=== PATIENT | female | born 1960 | race Caucasian/White ===

== ENCOUNTER → 2018-01-12 | Outpatient (CLI) | payer OTHER ==
[2016-08-14 14:05] VITALS: BMI 33.9
[~2018-01-12] MED LIST: ACYC-50 PO; DIA5 PO; DOCU-202 PO; HCTZ25 PO; HYDR-389 PO; LISI-374 PO; LOR5/325 PO; MOM PO; POLY17PO25 PO
--- NOTE | 2018-01-12 11:57 | RADIOLOGY IMAGING REPORT ---
FACILITY: [facility] PATIENT NAME: Elinor Manuel : 1960 MR: [id number] V: [id number] EXAM DATE: ORDERING PHYSICIAN: BEAN MANUEL TECHNOLOGIST: Location: [facility] Patient: Elinor Manuel : 1960 Visit/Account:[id number] Date of Sevice: 01/12/2018 FOOT 2 VIEW RIGHT Indication: Pain in the third and fourth metatarsal bone for one month Comparison: None Available Findings: 3 views of the right foot were obtained. Osseous alignment anatomic. Mild degenerative change first MTP joint. The third and fourth metatars al bones appear within normal limits without fracture or destructive osseous process. No periosteal reaction. Mild plantar calcaneal spurring is noted. IMPRESSION: 1.No acute osseous abnormality of the right foot Report Dictated By: Dante Dorado MD at 01/12/2018 11:52 AM Report E-Signed By: Dante Dorado MD at 01/12/2018 11:53 AM WSN:[email or web address]
== END ==
LOC: RAD 10:35
PROVIDERS: ATTEND Family Medicine
DX: M79.671 Pain in right foot (principal)

== ENCOUNTER → 2018-01-29 | Outpatient (CLI) | payer OTHER ==
[2016-08-14 14:05] VITALS: BMI 33.9
--- NOTE | 2018-01-29 11:36 | RADIOLOGY IMAGING REPORT ---
FACILITY: [facility] - [place] PATIENT NAME: Elinor Manuel : 1960 MR: [id number] V: [id number] EXAM DATE: ORDERING PHYSICIAN: SHASTA ARIAS TECHNOLOGIST: Location: [facility] [place] Patient: Elinor Manuel : 1960 Visit/Account:[id number] Date of Sevice: 01/29/2018 Exam type: FOOT 2 VIEW LEFT History: Pain in great toe no known injury Comparison: January 12, 2018. Right foot Findings: Two views of the left foot were submitted. There is a mild hallux valgus deformity involving the left first MTP joint. There is no evidence of acute fracture or dislocation. Incidentally noted is a small left calcaneal spur IMPRESSION: 1. Small left calcaneal spur Mild hallux valgus deformity involving the left first MTP joint Report Dictated By: Karie Mejia MD at 01/29/2018 11:30 AM Report E-Signed By: Karie Mejia MD at 01/29/2018 11:33 AM WSN:[email or web address]
== END ==
LOC: RAD 10:07
PROVIDERS: ATTEND Family Medicine
DX: M77.31 Calcaneal spur, right foot (principal)

== ENCOUNTER → 2018-09-26 | Outpatient (CLI) | payer OTHER ==
[2016-08-14 14:05] VITALS: BMI 33.9
--- NOTE | 2018-09-26 15:41 | RADIOLOGY IMAGING REPORT ---
FACILITY: [facility] - [place] PATIENT NAME: Elinor Manuel : 1960 MR: [id number] V: [id number] EXAM DATE: ORDERING PHYSICIAN: SHASTA ARIAS TECHNOLOGIST: Location: [facility] Patient: Elinor Manuel : 1960 Visit/Account:[id number] Date of Sevice: 09/26/2018 Exam type: ANKLE 3 VIEW MIN LEFT History: Twisted left ankle. Pain in left foot and ankle on lateral side Comparison: Left foot series performed today. Findings: Three views of the left ankle were submitted there is a small left calcaneal spur. There is no evide nce of acute fracture or dislocation involving the left ankle. The ankle mortise appears intact Ther e is moderate soft tissue swelling present IMPRESSION: 1. Moderate soft tissue spine about the left ankle although no gross evidence of acute fracture or d islocation Report Dictated By: Karie Mejia MD at 09/26/2018 3:35 PM Report E-Signed By: Karie Mejia MD at 09/26/2018 3:36 PM WSN:[email or web address]
--- NOTE | 2018-09-26 15:44 | RADIOLOGY IMAGING REPORT ---
FACILITY: [facility] - [place] PATIENT NAME: Elinor Manuel : 1960 MR: [id number] V: [id number] EXAM DATE: ORDERING PHYSICIAN: SHASTA ARIAS TECHNOLOGIST: [place] [facility] [place] Elinor [place] : 1960 Visit/Account:[id number] Date of Sevice: 09/26/2018 Exam type: FOOT 2 VIEW LEFT History: There is a left ankle today with pain lateral side of left foot Comparison: Left ankle series performed today. Findings: Two views of the left foot were submitted. There is a small left calcaneal spur. There is no eviden ce of acute fracture or dislocation. Soft tissue spine is noted about the left ankle IMPRESSION: 1. Soft tissue spine about the left ankle although no evidence of acute fracture-dislocation involvi ng the left foot Report Dictated By: Karie Mejia MD at 09/26/2018 3:36 PM Report E-Signed By: Karie Mejia MD at 09/26/2018 3:38 PM WSN:[email or web address]
== END ==
LOC: RAD 15:08
PROVIDERS: ATTEND Family Medicine
DX: M25.572 Pain in left ankle and joints of left foot (principal)